=== PATIENT | male | born 1975 | race Caucasian/White ===

== ENCOUNTER 2023-03-28 15:22 | Emergency (ER) | payer MEDICAID, OTHER ==
[~2023-03-28] VITALS: Ht 177.8 cm; Wt 91.3 kg
[2023-03-28 16:14] LABS: BASO % 0.2 % (0.0-1.0); EOS # 0.2 10^3/uL (0.0-0.5); EOS % 1.5 % (0.0-3.0); HEMATOCRIT 51.9 % (42.0-52.0); HEMOGLOBIN 17.4 g/dl (13.5-17.5); LYMPH # 0.6 10^3/uL (1.5-5.0); LYMPH % 4.2 % (24.0-44.0); MEAN CORPUSCULAR HEMOGLOBIN 32.6 pg (27.0-33.0); MEAN CORPUSCULAR HGB CONC 33.5 g/dl (32.0-36.5); MEAN CORPUSCULAR VOLUME 97.4 fl (80.0-96.0); MONO # 0.6 10^3/uL (0.0-0.8); NEUTROPHILS # 12.7 10^3/uL (1.5-8.5); NEUTROPHILS % 89.7 % (36.0-66.0); PLATELET COUNT, AUTOMATED 192 10^3/uL (150-450); RED BLOOD COUNT 5.33 10^6/uL (4.30-6.10); WHITE BLOOD COUNT 14.2 10^3/uL (4.0-10.0)
[2023-03-28 16:34] LABS: LIPASE 56 U/L (12-53)
[2023-03-28 16:36] LABS: ALBUMIN 3.9 G/DL (3.2-5.2); ALKALINE PHOSPHATASE 67 U/L (46-116); ALT/SGPT 27 U/L (7.0-40); AST/SGOT 9 U/L (<34); BILIRUBIN,DIRECT 0.2 MG/DL (<0.4); BILIRUBIN,TOTAL 0.7 MG/DL (0.3-1.2); BLOOD UREA NITROGEN 23 MG/DL (9-23); CALCIUM LEVEL 8.3 MG/DL (8.5-10.1); CARBON DIOXIDE LEVEL 27 MMOL/L (20-31); CHLORIDE LEVEL 107 MMOL/L (98-107); CREATININE FOR GFR 0.74 MG/DL (0.70-1.30); GLOMERULAR FILTRATION RATE > 60.0 (>60); GLUCOSE, FASTING 134 MG/DL (60-100); POTASSIUM SERUM 4.4 MMOL/L (3.5-5.1); SODIUM LEVEL 139 MMOL/L (136-145); TOTAL PROTEIN 7.2 G/DL (5.7-8.2)
[2023-03-28] MEDS ORDERED: PANTOPRAZOLE 40MG VIAL IV ONE (17:30)
[2023-03-28] MEDS ORDERED: ONDANSETRON 4MG 2ML VIAL IV ONE (17:30)
[2023-03-28] MEDS ORDERED: KETOROLAC 30 MG/ML 1ML VIAL IV ONE (17:30)
[2023-03-28] MEDS ORDERED: NS 1,000 ML IV ONE (17:30)
[2023-03-28] MEDS ORDERED: ISOVUE-370 76% 100ML VIAL As Ordered ONE (17:34)
[2023-03-28 18:44] LABS: INR 1.07; PARTIAL THROMBOPLASTIN TIME 24.4 SECONDS (24.8-34.2); PROTHROMBIN TIME 13.6 SECONDS (12.5-14.5)
[2023-03-28 18:58] LABS: CK-MB VALUE MASS < 1.0 NG/ML (<3.6); MAGNESIUM LEVEL 1.6 MG/DL (1.8-2.4)
[2023-03-28 19:02] LABS: FREE T4 0.95 NG/DL (0.89-1.76); THYROID STIMULATING HORMONE 1.268 uIU/ML (0.55-4.78)
[2023-03-28 19:04] LABS: CPK CREATINE PHOSPHOKINASE 39 U/L (46-171); MB/CK RELATIVE INDEX 2.56 (< OR =4)
[2023-03-28 19:40] VITALS: BP 117/58; TEMP 100.6; O2SAT 95
[2023-03-28] MEDS ORDERED: PANT40TA29 PO (20:06)
[2023-03-28] MEDS ORDERED: ONDA4TAB6 PO (20:06)
== END 2023-03-28 20:44 | disposition home or self-care (01) ==
LOC: M ED 15:22
DX: R10.9 Unspecified abdominal pain (principal); R94.31 Abnormal electrocardiogram [ECG] [EKG]; F17.210 Nicotine dependence, cigarettes, uncomplicated; F10.10 Alcohol abuse, uncomplicated; F12.90 Cannabis use, unspecified, uncomplicated; F14.90 Cocaine use, unspecified, uncomplicated; Z79.83 Long term (current) use of bisphosphonates
CPT/HCPCS: 71275; 74177; 80048; 80076; 81001; 82550; 82553; 83605; 83690; 83735; 83880; 84439; 84443; 84484; 85025; 85610; 85730; 87040; 93005; 93041; 94760; 96361; 96374; 96375; 99284; C9113; J1885; J2405; Q9967